=== PATIENT | female | born 1955 | race Hispanic/Latino ===

== ENCOUNTER 2021-04-04 08:53 | Outpatient (CLI) | payer MEDICARE, BC | END 2021-04-04 08:54 | disposition home or self-care (01) | LOC: BICCT 08:53 | PROVIDERS: ATTEND Student in an Organized Health Care Education/Training Program | DX: H93.8X1 Other specified disorders of right ear (principal) | CPT/HCPCS: 70480 ==

== ENCOUNTER 2021-05-21 08:27 | Outpatient (CLI) | payer MEDICARE, BC | END 2021-05-21 08:28 | disposition home or self-care (01) | LOC: BICMAMMO 08:27 | PROVIDERS: ATTEND Family Medicine | DX: Z12.31 Encounter for screening mammogram for malignant neoplasm of breast (principal); Z80.3 Family history of malignant neoplasm of breast | CPT/HCPCS: 77063; 77067 ==

== ENCOUNTER 2021-12-14 22:16 | Emergency (ER) | payer MEDICARE, BC | END 2021-12-14 23:20 | disposition home or self-care (01) | LOC: ERS 22:16 | DX: I10 Essential (primary) hypertension (principal) | CPT/HCPCS: 99283 ==

== ENCOUNTER 2022-02-03 07:50 | Outpatient (CLI) | payer MEDICARE, BC | END 2022-02-03 07:51 | disposition home or self-care (01) | LOC: BICMAMMO 07:50 | PROVIDERS: ATTEND Family Medicine | DX: Z13.820 Encounter for screening for osteoporosis (principal); N95.9 Unspecified menopausal and perimenopausal disorder; M85.89 Other specified disorders of bone density and structure, multiple sites | CPT/HCPCS: 77080 ==

== ENCOUNTER 2022-04-21 12:52 | Outpatient (CLI) | payer MEDICARE, BC | END 2022-04-21 12:53 | disposition home or self-care (01) | LOC: CT 12:52 | PROVIDERS: ATTEND Student in an Organized Health Care Education/Training Program | DX: H71.90 Unspecified cholesteatoma, unspecified ear (principal); H74.8X3 Other specified disorders of middle ear and mastoid, bilateral; H73.893 Other specified disorders of tympanic membrane, bilateral; H72.91 Unspecified perforation of tympanic membrane, right ear | CPT/HCPCS: 70480 ==

== ENCOUNTER 2022-05-26 08:08 | Outpatient (CLI) | payer MEDICARE, BC | END 2022-05-26 08:09 | disposition home or self-care (01) | LOC: BICMAMMO 08:08 | PROVIDERS: ATTEND Family Medicine | DX: Z12.31 Encounter for screening mammogram for malignant neoplasm of breast (principal); Z80.3 Family history of malignant neoplasm of breast | CPT/HCPCS: 77063; 77067 ==

== ENCOUNTER 2023-06-09 15:05 | Outpatient (CLI) | payer MEDICARE, BC | END 2023-06-09 15:06 | disposition home or self-care (01) | LOC: BICMAMMO 15:05 | PROVIDERS: ATTEND Family Medicine | DX: Z12.31 Encounter for screening mammogram for malignant neoplasm of breast (principal); Z80.3 Family history of malignant neoplasm of breast | CPT/HCPCS: 77063; 77067 ==

== ENCOUNTER 2024-06-13 07:52 | Outpatient (CLI) | payer MEDICARE | END 2024-06-13 07:53 | disposition home or self-care (01) | LOC: BICMAMMO 07:52 | PROVIDERS: ATTEND Family Medicine | DX: Z12.31 Encounter for screening mammogram for malignant neoplasm of breast (principal); Z80.3 Family history of malignant neoplasm of breast | CPT/HCPCS: 77063; 77067 ==